=== PATIENT | female | born 1995 | race Caucasian/White ===

== ENCOUNTER 2025-04-29 23:27 | Day surgery (SDC) | payer OTHER ==
[2025-04-30] VITALS: BMI 30.1
[2025-04-30] MEDS ORDERED: hydrALAZINE 20 MG/ML VIAL SLOW IVP PRN ×2 (01:20→06:42)
[2025-04-30 02:05] LABS: Glucose, Urine (Dipstick) Normal (Negative); Leukocyte Negative (Negative); Protein, Urine (Dipstick) Negative (Neg-Trace); Specific Gravity, Urine 1.015 (1.005-1.030)
[2025-04-30 02:17] LABS: Bacteria/HPF Rare-Few HPF (None Seen); CAUTI Indications for Culture Pregnancy; RBC/HPF 0-3 HPF (0-3)
[2025-04-30 02:20] LABS: Urine Culture Reflex Yes Yes
[2025-04-30] MEDS ORDERED: Bicitra 30 ML UDCUP PO PRN (06:42)
[2025-04-30] MEDS ORDERED: Methylergonovine 0.2 MG/ML VIAL IM PRN (06:42)
[2025-04-30] MEDS ORDERED: Carboprost 250 MCG/ML AMP IM PRN (06:42)
[2025-04-30] MEDS ORDERED: Famotidine/PF 20 mg/2ml Vial SLOW IVP PRN (06:42)
[2025-04-30] MEDS ORDERED: Ondansetron PF 4 MG/2 ML Vial IVP PRN (06:42)
[2025-04-30] MEDS ORDERED: Tranexamic Acid 1,000 MG/10 ML VIAL IVP PRN (06:42)
[2025-04-30] MEDS ORDERED: Diphenoxylate HCl/Atropine Tablet PO PRN ×2 (06:42)
[2025-04-30] MEDS ORDERED: Ondansetron PF 4 MG/2 ML Vial ONE (06:44)
[2025-04-30] MEDS ORDERED: Oxytocin 10 UNITS/ML VIAL ONE (06:44)
[2025-04-30] MEDS ORDERED: PHENYLEPHRINE-NS 100 MCG/ML 10 ML SYRINGE ONE (06:44)
[2025-04-30] MEDS ORDERED: Dexamethasone 10 MG/ML VIAL ONE (06:44)
[2025-04-30] MEDS ORDERED: Oxytocin 30 units/NS 500 ML 500 ML IV SCH (06:45)
[2025-04-30] MEDS ORDERED: Azithromycin 500 MG in Sodium Chloride 0.9% 250 ML 250 ML IVPB SCH (06:45)
[2025-04-30 07:50] LABS: Hematocrit 38.6 % (34.9-44.5); Hemoglobin 13.0 g/dL (12.0-15.5); Mean Corpuscular Hemoglobin 32.1 pg (27.0-33.0); Mean Corpuscular Volume 95.3 fL (81.6-98.3); Platelet Count 166 10x3/uL (150-450); Red Blood Cell (RBC) Count 4.05 10x6/uL (3.90-5.03); White Blood Cell (WBC) Count 14.41 10x3/uL (3.5-10.5)
[2025-04-30 08:24] LABS: Hep B Surf Ag - L&D Non-Reactive S/CO (NonReactive)
[2025-04-30 08:25] LABS: Syphilis Antibody Index 0.07 S/CO (<1.00 Non-Reactive)
[2025-04-30] MEDS ORDERED: Tranexamic Acid 1,000 MG/10 ML VIAL ONE (08:46)
== END 2025-04-30 02:47 | disposition home or self-care (01) ==
LOC: CSHLD/OP 23:27
PROVIDERS: ATTEND Family Medicine
DX: O47.1 False labor at or after 37 completed weeks of gestation (principal); O32.1XX0 Maternal care for breech presentation, not applicable or unspecified; Z3A.39 39 weeks gestation of pregnancy; Z87.59 Personal history of other complications of pregnancy, childbirth and the puerperium
CPT/HCPCS: 81001; 86780; 86850; 86900; 86901; 87086; 87340; 87480; 87510; 87660; 99285; J1100; J2274; J2405; J2590

== ENCOUNTER 2025-04-30 05:47 | Inpatient (IN) | payer MEDICAID, OTHER ==
[2025-04-30 06:16] VITALS: BMI 30.1
[2025-04-30] MEDS ORDERED: Meperidine HCl/PF 25 MG (1 mL) VIAL SLOW IVP PRN (06:51)
[2025-04-30] MEDS ORDERED: Ondansetron PF 4 MG/2 ML Vial IVP PRN ×2 (06:51)
[2025-04-30] MEDS ORDERED: diphenhydrAMINE 50 MG/ML VIAL IVP PRN (06:51)
[2025-04-30] MEDS: CEFAZOLIN 2 GM VIAL ONE (06:53)
[2025-04-30] MEDS ORDERED: Communication Order-Pharmacy FS SCH (07:00)
[2025-04-30] MEDS ORDERED: Ketorolac Tromethamine 30 MG (1 mL) VIAL IVP SCH (07:00)
[2025-04-30] MEDS ORDERED: Oxytocin 30 units/NS 500 ML 500 ML IV SCH (14:55)
[2025-04-30] MEDS ORDERED: hydrALAZINE 20 MG/ML VIAL SLOW IVP PRN (14:55)
[2025-04-30] MEDS ORDERED: Methylergonovine 0.2 MG/ML VIAL IM PRN (14:55)
[2025-04-30] MEDS: Ketorolac Tromethamine 30 MG (1 mL) VIAL IVP PRN (14:57)
[2025-04-30] MEDS: Oxytocin 30 units/NS 500 ML 500 ML ONE (19:13)
[2025-04-30] MEDS: Azithromycin 500 MG VIAL ONE (19:13)
[2025-04-30] MEDS: Ferrous Sulfate 325 MG TAB PO SCH (19:16)
[2025-05-01 05:50] LABS: Hematocrit 30.3 % (34.9-44.5); Hemoglobin 10.1 g/dL (12.0-15.5); Mean Corpuscular Hemoglobin 32.1 pg (27.0-33.0); Mean Corpuscular Volume 96.2 fL (81.6-98.3); Platelet Count 139 10x3/uL (150-450); Red Blood Cell (RBC) Count 3.15 10x6/uL (3.90-5.03); White Blood Cell (WBC) Count 13.93 10x3/uL (3.5-10.5)
[2025-05-01] MEDS: Ferrous Sulfate 325 MG TAB PO SCH (07:48)
[2025-05-01] MEDS: Acetaminophen 325 MG TAB PO PRN (21:06)
[2025-05-01] MEDS: Ibuprofen 800 MG TAB PO SCH (21:08)
[2025-05-02] MEDS: Boostrix 0.5 ML (Tdap) VIAL (>/=7 yrs of age) IM ONE (07:39)
[2025-05-02 08:01] VITALS: BP 108/68; TEMP 98.3
== END 2025-05-02 13:45 | disposition home or self-care (01) | DRG 788 ==
LOC: CSHLD/OP 05:47 → CSHLD 07:56 → CSHPED 10:30
PROVIDERS: ADMIT Family Medicine; ATTEND Family Medicine
PROC: 10D00Z1 Extraction of Products of Conception, Low, Open Approach (ICD-10-PCS; principal; 2025-04-30)
DX: O34.211 Maternal care for low transverse scar from previous cesarean delivery (principal); O75.5 Delayed delivery after artificial rupture of membranes; O32.1XX0 Maternal care for breech presentation, not applicable or unspecified; O62.1 Secondary uterine inertia; O34.03 Maternal care for unspecified congenital malformation of uterus, third trimester; Z79.899 Other long term (current) drug therapy; Z3A.39 39 weeks gestation of pregnancy; Z37.0 Single live birth
CPT/HCPCS: 36415; 85027; J0456; J1885